=== PATIENT | male | born 1965 | race Caucasian/White ===

== ENCOUNTER 2019-01-22 10:31 | Emergency (ER) | payer SELFPAY ==
[2019-01-22] MEDS ORDERED: Ketorolac 30 MG/ML SDV ONE (11:01)
[2019-01-22] MEDS ORDERED: Ketorolac 30 MG/ML SDV IVPUSH ONE (11:15)
[2019-01-22] MEDS ORDERED: Sodium Chloride 0.9% 1,000 ML IV STA (11:18)
[2019-01-22] MEDS ORDERED: Ondansetron 4 MG/2 ML SDV ONE (11:45)
[2019-01-22] MEDS ORDERED: HYDROmorphone 0.5 MG/0.5 ML Syringe ONE (11:46)
[2019-01-22] MEDS ORDERED: Ondansetron 4 MG/2 ML SDV IVPUSH ONE (12:09)
[2019-01-22] MEDS ORDERED: HYDROmorphone 0.5 MG/0.5 ML Syringe IVPUSH ONE (12:09)
[2019-01-22] MEDS ORDERED: Lisinopril 10 MG Tab PO ONE (12:10)
[2019-01-22] MEDS ORDERED: Tamsulosin 0.4 MG Cap.ER PO ONE (12:11)
[2019-01-22 12:24] VITALS: BP 212/103
--- NOTE | 2019-01-22 13:14 | EDM.PDOC ---
ED HPI GENERAL MEDICAL PROBLEM - General Chief Complaint: Genitourinary Problem Stated Complaint: KIDNEY STONE Time Seen by Provider: 01/22/19 11:00 Source of Information: Reports: Patient History Limitations: Reports: No Limitations - History of Present Illness INITIAL COMMENTS - FREE TEXT/NARRATIVE: Reji presents to the ED today with c/o right flank pain that radiates to right side and right lower pelvic region. Patient reports pain similar to his kidney stones in the past. Patient endorses nausea, no vomiting, has a hard time urinating which is unusual for him, no fever/chills. Taking Tylenol without relief. Patient is quite hypertensive here, he does not have a PCP, denies any chest pain, sob or headache. Patient denies any penile discharged, scrotal swelling/pain Onset: Today, Sudden - Related Data Allergies Allergy/AdvReac Type Severity Reaction Status Date / Time No Known Allergies Allergy Verified 01/22/19 11:08 Home Meds: Home Meds NK [No Known Home Meds] 10/05/16 [History] Past Medical History Gastrointestinal History: Reports: None Genitourinary History: Reports: Renal Calculus - Past Surgical History Head Surgeries/Procedures: Reports: None GI Surgical History: Reports: Appendectomy Dermatological Surgical History: Reports: None Social & Family History - Tobacco Use Smoking Status *Q: Never Smoker - Caffeine Use Caffeine Use: Reports: Coffee ED ROS GENERAL - Review of Systems Review Of Systems: ROS reveals no pertinent complaints other than HPI. ED EXAM, RENAL/ - Physical Exam Exam: See Below Exam Limited By: No Limitations General Appearance: Alert, Moderate Distress Head: Atraumatic Neck: Normal Inspection, Supple, Non-Tender Respiratory/Chest: No Respiratory Distress, Lungs Clear, Normal Breath Sounds Cardiovascular: Normal Peripheral Pulses, Regular Rate, Rhythm, No Murmur, Other (Hypertensive) (Male) Exam: Deferred Back Exam: Full Range of Motion, CVA Tenderness (R) Extremities: Normal Inspection, Normal Range of Motion Neurological: Alert, Oriented, CN II-XII Intact Psychiatric: Normal Affect, Normal Mood Lymphatic: No Adenopathy Course - Vital Signs Last Recorded V/S: Last Vital Signs Temp 36.4 C 01/22/19 11:14 Pulse 93 01/22/19 11:14 Resp 21 H 01/22/19 11:14 BP 212/103 H 01/22/19 12:20 Pulse Ox 96 05/19/19 11:14 Reji is a 53 year old male, presents to the ED today with concerns for a kidney stone, please refer to HPI and focused exam. Patient given IV Toradol and fluids on arrival which resolved his pain for about an hour, he then had return of his pain and one emesis, patient was then given zofran and Dilaudid and slept. Patient quite hypertensive here although he denies any symptoms related to this , likely chronic and exacerbated by his pain today. UA with packed RBC's no infection. CBC with high HGB, likely secondary to dehydration, white count is normal. BMP with high end of normal kidney function and blood sugar of 144. Patient given a dose of Flomax and Lisinopril here. We discussed CT scan to determine size and location of stone as his pain seems to migrate between flank and pelvis. Patient is self pay and is concerned about ED bill, he has passed stones in the past without difficulty. I will send patient home with Flomax, Zofran, and Percocet for pain. I am going to start him on Lisinopril which likely will not be adequate as monotherapy and really want patient to establish PCP and have his blood pressure rechecked in the next week, they can also evaluate his elevated blood sugar here today. We did discuss ramifications of not doing so which patient really didn't seem to care either way. Patient instructed to return to the ED with any worsening pain related to his likely kidney stone, fever, chills, chest pain, sob, headache or other concerns which I do have a low threshold for. Patient agreeable to plan of care and discharged in stable condition. - Orders/Labs/Meds Labs: Laboratory Tests 01/22/19 01/22/19 01/22/19 Range/Units 11:00 11:30 11:30 WBC 9.8 (4.5-11.0) K/uL RBC 5.67 (4.30-5.90) M/uL Hgb 18.1 H* (12.0-15.0) g/dL Hct 52.2 (40.0-54.0) % MCV 92 (80-98) fL MCH 32 H (27-31) pg MCHC 35 (32-36) % Plt Count 170 (150-400) K/uL Neut % (Auto) 89 H (36-66) % Lymph % (Auto) 6 L (24-44) % Taney % (Auto) 5 (2-6) % Eos % (Auto) 0 L (2-4) % Baso % (Auto) 0 (0-1) % Sodium 140 (140-148) mmol/L Potassium 4.4 (3.6-5.2) mmol/L Chloride 105 (100-108) mmol/L Carbon Dioxide 25 (21-32) mmol/L Anion Gap 9.8 (5.0-14.0) mmol/L BUN 17 (7-18) mg/dL Creatinine 1.2 (0.8-1.3) mg/dL Est Cr Clr Drug Dosing 69.67 mL/min Estimated GFR (MDRD) > 60 (>60) Glucose 144 H (74-106) mg/dL Calcium 9.1 (8.5-10.1) mg/dL Urine Color Brown Urine Appearance Slightly cloudy Urine pH 5.0 (4.5-8.0) Ur Specific Griffin 1.025 (1.008-1.030) Urine Protein 30 H (NEGATIVE) mg/dL Urine Glucose (UA) 50 H (NEGATIVE) mg/dL Urine Ketones Negative (NEGATIVE) mg/dL Urine Occult Blood Large (NEGATIVE) Urine Nitrite Negative (NEGAITVE) Urine Bilirubin Negative (NEGATIVE) Urine Urobilinogen Normal (NORMAL) mg/dL Ur Leukocyte Esterase Negative (NEGATIVE) Urine RBC Packed H (0-5) Urine WBC 0-5 (0-5) Ur Epithelial Cells Few Amorphous Sediment Few Meds: Medications Discontinued Medications Generic Name Dose Route Start Last Admin Trade Name Claribel PRN Reason Stop Dose Admin Hydromorphone HCl Confirm 01/22/19 11:46 Dilaudid Administered 01/22/19 11:47 Dose 0.5 mg .ROUTE .STK-MED ONE Hydromorphone HCl 0.5 mg 01/22/19 12:09 01/22/19 12:21 Dilaudid IVPUSH 01/22/19 12:10 0.5 mg ONETIME ONE Administration Sodium Chloride 1,000 mls @ 999 mls/hr 01/22/19 11:18 01/22/19 11:26 Normal Saline IV 01/22/19 12:18 999 mls/hr NOW STA Administration Ketorolac Tromethamine Confirm 01/22/19 11:01 Toradol Administered 01/22/19 11:02 Dose 30 mg .ROUTE .STK-MED ONE Ketorolac Tromethamine 30 mg 01/22/19 11:15 01/22/19 11:17 Toradol IVPUSH 01/22/19 11:16 30 mg ONETIME ONE Administration Lisinopril 10 mg 01/22/19 12:10 01/22/19 12:20 Prinivil PO 01/22/19 12:11 10 mg ONETIME ONE Administration Ondansetron HCl Confirm 01/22/19 11:45 Zofran Administered 01/22/19 11:46 Dose 4 mg .ROUTE .STK-MED ONE Ondansetron HCl 4 mg 01/22/19 12:09 01/22/19 12:23 Zofran IVPUSH 01/22/19 12:10 4 mg ONETIME ONE Administration Tamsulosin HCl 0.4 mg 01/22/19 12:11 01/22/19 12:19 Flomax PO 01/22/19 12:12 0.4 mg ONETIME ONE Administration Departure - Departure Time of Disposition: 13:40 Disposition: Home, Self-Care 01 Condition: Good Clinical Impression: Ureteral calculus, right, Kidney stone Hypertension Qualifiers: Hypertension type: unspecified Qualified Code(s): I10 - Essential (primary) hypertension - Discharge Information Instructions: Renal Colic, [id number], Kidney Stones, [id number], Hypertension, [id number] Referrals: PCP,None [Primary Care Provider] - Additional Instructions: Start the Lisinopril tomorrow as you had a dose here today, this is for your blood pressure. Start Flomax tomorrow, take this at least 4 hours apart from your Lisinopril. Zofran as needed for nausea/vomiting. Ibuprofen 600 mg every 6 hours for pain. Percocet for severe pain, this is a narcotic, do not drive if you take it. Stay really well hydrated to help flush out the stone and strain your urine when you do go. YOU NEED TO ESTABLISH A PRIMARY CARE PROVIDER AND SEE THEM IN THE NEXT WEEK TO EVALUATE YOUR BLOOD PRESSURE AND RECHECK YOUR BLOOD SUGAR. If you develop any worsening pain, fever, painful urination, chest pain, headache that won't go away, or shortness of breath.
== END 2019-01-22 13:50 | disposition home or self-care (01) ==
LOC: JP.ED 10:31
DX: N20.2 Calculus of kidney with calculus of ureter (principal); I10 Essential (primary) hypertension; Z90.49 Acquired absence of other specified parts of digestive tract
CPT/HCPCS: 36415; 51798; 80048; 81001; 85025; 96361; 96374; 96375; 99284; A9270; J1170; J1885; J2405; J7030